=== PATIENT | female | born 1985 | race Caucasian/White ===

== ENCOUNTER 2021-08-24 06:00 | Inpatient (IN) | payer OTHER ==
[2021-08-24] MEDS ORDERED: ELECTROLYTE-148 SOLN 500 ML IV SCH ×2 (06:15→06:45)
[2021-08-24] MEDS ORDERED: CITRIC ACID/SODIUM CITRATE 30 ML UNIT-DOSE CUP PO ONE ×2 (06:15→08:15)
[2021-08-24 06:44] VITALS: BMI 30.5
[2021-08-24] MEDS ORDERED: ePHEDrine SULFATE 50 MG/1 ML AMPULE ONE (08:02)
[2021-08-24] MEDS ORDERED: PROPOFOL 20 ML ONE (08:02)
[2021-08-24] MEDS ORDERED: ELECTROLYTE-148 SOLN 1,000 ML IV SCH (08:15)
[2021-08-24] MEDS ORDERED: ELECTROLYTE-148 SOLN 500 ML IV ONE (08:15)
[2021-08-24] MEDS ORDERED: morphine SULFATE (PF) 1 MG/2 ML SYRINGE ONE (08:18)
[2021-08-24] MEDS ORDERED: METHYLERGONOVINE MALEATE 0.2 MG/1 ML AMP IM PRN (09:41)
[2021-08-24] MEDS ORDERED: SENNOSIDES/DOCUSATE COMBO (SENNA PLUS) TABLET (UD) PO PRN (09:41)
[2021-08-24] MEDS ORDERED: IBUPROFEN 800 MG/8 ML IJ IVPB PRN (09:41)
[2021-08-24] MEDS ORDERED: oxyCODONE HCL 5 MG TABLET PO PRN (09:41)
[2021-08-24] MEDS ORDERED: OXYTOCIN 20 UNITS in 0.9% NS 20 UNIT/1,000 ML INFUS.BAG IV SCH (09:45)
[2021-08-24] MEDS ORDERED: ONDANSETRON 4 MG/2 ML VIAL IVPUSH PRN (09:49)
[2021-08-24] MEDS ORDERED: morphine SULFATE/PF 1 MG/2 ML (2cc Syringe - QUVA) EP ONE (09:49)
[2021-08-24] MEDS: PRENATAL VITAMINS W/ FOLIC ACID TABLET (FP) PO SCH (11:24)
[2021-08-24 23:08] LABS: HIV INTERPRETATION NEGATIVE (NEGATIVE)
[2021-08-25] MEDS: SIMETHICONE 80 MG TAB.CHEW (FP) PO PRN ×3 (05:03→20:56)
[2021-08-25] MEDS: IBUPROFEN 600 MG TABLET (FP) PO PRN ×2 (05:03→12:31)
[2021-08-25] MEDS: ACETAMINOPHEN 325 MG TABLET (FP) PO PRN ×2 (05:22→12:31)
[2021-08-25 06:19] LABS: BASO % 0.2 % (0-2.0); EOS % 0.4 % (0-4.5); HEMOGLOBIN 9.4 GM/dL (10.7-15.3); LYMPH % 15.2 % (8-40); MCH 31.1 pg (25.7-33.7); MCHC 33.6 g/dl (32.0-36.0); MEAN CELL VOLUME 92.6 fl (80-96); MEAN PLT VOLUME 11.2 fl (7.5-11.1); MONO % 4.7 % (3.8-10.2); NEUT % 79.5 % (42.8-82.8); PLATELET COUNT 123 10^3/uL (134-434); RBC 3.02 M/mm3 (3.60-5.2); RDW 14.1 % (11.6-15.6); WHITE BLOOD COUNT 12.2 K/mm3 (4.0-10.0)
[2021-08-25] MEDS: PRENATAL VITAMINS W/ FOLIC ACID TABLET (FP) PO SCH (09:40)
[2021-08-25] MEDS ORDERED: BISACODYL 10 MG SUPP.RECT RC PRN (09:41)
[2021-08-26] MEDS: oxyCODONE HCL 5 MG TABLET PO PRN ×2 (00:53→06:38)
[2021-08-26] MEDS: SIMETHICONE 80 MG TAB.CHEW (FP) PO PRN ×2 (00:53→06:38)
[2021-08-26] MEDS: ACETAMINOPHEN 325 MG TABLET (FP) PO PRN ×2 (00:54→06:38)
[2021-08-26] MEDS: PRENATAL VITAMINS W/ FOLIC ACID TABLET (FP) PO SCH (09:20)
[2021-08-26 11:18] VITALS: BP 100/63; PULSE 83; TEMP 97.6
== END 2021-08-26 11:50 | disposition home or self-care (01) | DRG 540 ==
LOC: JLDR 06:00 → J3W 11:35
PROVIDERS: ADMIT Obstetrics & Gynecology; ATTEND Obstetrics & Gynecology
PROC: 10D00Z1 Extraction of Products of Conception, Low, Open Approach (ICD-10-PCS; principal; 2021-08-24)
DX: O34.219 Maternal care for unspecified type scar from previous cesarean delivery (principal); Z3A.39 39 weeks gestation of pregnancy; Z37.0 Single live birth
CPT/HCPCS: 36415; 85025; 87389